=== PATIENT | male | born 1975 | race Caucasian/White ===

== ENCOUNTER 2017-01-17 20:07 | Emergency (ER) | payer OTHER ==
[~2017-01-17] VITALS: Ht 167.6 cm; Wt 81.6 kg
[~2017-01-17 20:07] MED LIST: ACETAMINOPHEN500 M3 ORAL; ALBUTEROL SULF8.5 GM INH; AZITHROMYCIN250 MG ORAL; GUAIFENESIN-CO118 M1 ORAL; LEVOFLOXACIN500 MG ORAL; LORATADINE10 M2 PO; PREDNISONE20 M1 PO; PRILOSEC40 MG ORAL; PROMETHAZI6.25 MG/2 ORAL; PROMETHAZINE-C118 M1 ORAL
[2017-01-17] MEDS ORDERED: BACITRACIN ZIN1 EACH TOPIC (20:55)
[2017-01-17] MEDS ORDERED: IBUPROFEN600 MG ORAL (20:55)
[2017-01-17 21:28] VITALS: BP 122/80
--- NOTE | 2017-01-17 22:12 | Emergency Room Report ---
History of Present Illness General Chief Complaint: Animal Bite Source: Patient Present Illness HPI Patient is a 41-year-old male who presented after increased left-sided leg pain. The patient reports being bitten by a dachshund. He reports having pain to his left leg only. Patient denies past medical history other than pneumonia. Allergies: Coded Allergies: No Known Allergies (Verified Allergy, Unknown, 02/28/10) Patient History Reviewed Nursing Documentation: PMH: Agreed, PSxH: Agreed Nursing Documentation-PMH Past Medical History: No Stated History Hx Cardiac Problems: No Hx Hypertension: No Hx Pacemaker: No Hx Asthma: No Hx COPD: No Hx Diabetes: No Hx Cancer: No Hx Gastrointestinal Problems: Yes - GERD Hx Dialysis: No Hx Neurological Problems: No Hx Cerebrovascular Accident: No Hx Seizures: No Hx Headaches: Yes Review of Systems All Other Systems: negative except mentioned in HPI Physical Exam Vital Signs Date Time Temp Pulse Resp B/P (MAP) Pulse Ox O2 Delivery O2 Flow Rate FiO2 01/17/17 20:11 97.9 71 16 122/80 98 Room Air General Appearance: well appearing, no apparent distress, alert, GCS 15, non- toxic Head: normocephalic, atraumatic ENT: hearing grossly normal, normal voice Neck: full range of motion, supple Respiratory: no respiratory distress, speaking full sentences Gastrointestinal: normal inspection, soft Musculoskeletal: back normal, no calf tenderness Neurologic: normal inspection, alert, oriented x3, responsive, normal gait Psychiatric: mood/affect normal Skin: no rash, other - two small areas of erythema without break in skin Medical Decision Making Diagnostic Impression: Primary Impression: Animal bite of left lower leg ER Course Patient presented for animal bite. Differential diagnoses included foreign body, nerve injury, arterial injury among others. Patient's benign exam and does not appear to require any further imaging or laboratory testing at this time. The patient's tetanus vaccine is up to date. Patient does not appear to require any acute medical treatment. The skin appears to be intact. There are noted to be to areas consistent with teeth jones Last Vital Signs Date Time Temp Pulse Resp B/P (MAP) Pulse Ox O2 Delivery O2 Flow Rate FiO2 01/17/17 21:28 97.9 16 122/80 98 Room Air 01/17/17 20:11 71 Status: improved Disposition: HOME, SELF-CARE Condition: Stable Scripts Bacitracin Zinc* (BACITRACIN ZINC*) 1 Each Packet 1 APPLIC TOPIC THREE TIMES A DAY, #30 PACKET Prov: Rinku Hunter 01/17/17 Ibuprofen* (MOTRIN*) 600 Mg Tablet 600 MG ORAL Q8H Y for For Pain, #30 TAB 0 Refills Prov: Rinku Hunter 01/17/17 Referrals: [facility],REFERRING (PCP) Patient Instructions: Animal Bite Rinku Hunter Jan 17, 2017 22:12
== END 2017-01-17 21:30 | disposition home or self-care (01) ==
LOC: EMR 21:00
DX: S89.82XA Other specified injuries of left lower leg, initial encounter (principal); W54.0XXA Bitten by dog, initial encounter; Y92.89 Other specified places as the place of occurrence of the external cause
CPT/HCPCS: 99283

== ENCOUNTER 2017-06-09 20:34 | Emergency (ER) | payer MEDICAID, OTHER ==
[~2017-06-09] VITALS: Ht 167.6 cm; Wt 79.4 kg
[~2017-06-09 20:34] MED LIST changes: +BACITRACIN ZIN1 EACH TOPIC; +IBUPROFEN600 MG ORAL
[2017-06-09 20:44] VITALS: BP 125/72
[2017-06-09] MEDS ORDERED: AUGMENTIN 875-1 EAC1 ORAL (20:56)
--- NOTE | 2017-06-09 20:59 | Emergency Room Report ---
History of Present Illness General Chief Complaint: Animal Bite Source: Patient Present Illness HPI 42-year-old male, no significant past medical history, presenting with Doppler to his face. Patient's own dog bit him in his right lower face, his vaccinations and rabies are up-to-date. Patient's tetanus is not up-to-date. This occurred today. No redness no purulent drainage. No other injuries Allergies: Coded Allergies: No Known Allergies (Verified Allergy, Unknown, 02/28/10) Patient History Past Medical History: see triage record Past Surgical History: none Pertinent Family History: none Reviewed Nursing Documentation: PMH: Agreed, PSxH: Agreed Nursing Documentation-PMH Hx Cardiac Problems: No Hx Hypertension: No Hx Pacemaker: No Hx Asthma: No Hx COPD: No Hx Diabetes: No Hx Cancer: No Hx Gastrointestinal Problems: Yes - GERD Hx Dialysis: No Hx Neurological Problems: No Hx Cerebrovascular Accident: No Hx Seizures: No Hx Headaches: Yes Review of Systems All Other Systems: negative except mentioned in HPI Physical Exam Vital Signs Date Time Temp Pulse Resp B/P (MAP) Pulse Ox O2 Delivery O2 Flow Rate FiO2 06/09/17 20:37 97.6 65 12 125/72 98 Room Air 97.5 Sp02 EP Interpretation: reviewed, normal General Appearance: normal inspection, well appearing, no apparent distress, alert, GCS 15, non-toxic Head: normocephalic, atraumatic Eyes: bilateral eye normal inspection, bilateral eye PERRL, bilateral eye EOMI ENT: normal ENT inspection, normal pharynx, normal voice, moist mucus membranes Neck: normal inspection, full range of motion, supple Respiratory: normal inspection, lungs clear, normal breath sounds, no respiratory distress, no retraction, no wheezing, speaking full sentences, chest symmetrical Cardiovascular #1: normal inspection, regular rate, rhythm, normal capillary refill Cardiovascular #2: 2+ radial (R), 2+ radial (L) Gastrointestinal: normal inspection, non tender, soft, non-distended, no guarding Musculoskeletal: normal inspection, back normal, normal range of motion, non- tender Neurologic: normal inspection, alert, oriented x3, responsive, motor strength/ tone normal, sensory intact, normal gait, speech normal Psychiatric: normal inspection, judgement/insight normal, memory normal Skin: other - Above right upper lip with 1 cm linear non-gaping laceration/ bite. No bleeding. Medical Decision Making Diagnostic Impression: Primary Impression: Dog bite of face ER Course 42-year-old male with dog bite to face Differential diagnosis Dog bite to face, does not need to be repaired at this time, non-gaping ER course: Wound irrigated, bacitracin with sterile dressing applied. Tdap given. Disposition: Patient will be discharged home with Augmentin. Strict return precautions discussed with patient such as fever, chills, increasing bleeding to site, purulent drainage, rapid swelling or redness to area. Patient verbalizes understanding. Patient instructed to return to ED or their primary care doctor in 5-6 days for wound recheck. Patient agrees with plan. Please note that this Emergency Department Report was dictated using [employer]aweekcomputer systems technician technology software, occasionally this can lead to erroneous entry secondary to interpretation by the dictation equipment Last Vital Signs Date Time Temp Pulse Resp B/P (MAP) Pulse Ox O2 Delivery O2 Flow Rate FiO2 06/09/17 20:44 97.5 65 12 125/72 98 Room Air 97.5 Disposition: HOME, SELF-CARE Condition: Improved Scripts Amoxicillin/Potassium Clav 875-125* (AUGMENTIN 875-125 TABLET*) 1 Each Tablet 1 TAB ORAL TWICE A DAY for 7 Days, #14 TAB 0 Refills Prov: Georgie Stewart M.D. 06/09/17 Patient Instructions: Animal Bite Additional Instructions: PLEASE SEE YOUR DOCTOR IN 5-6 DAYS FOR WOUND RECHECK Georgie Stewart M.D. Jun 09, 2017 20:59
[2017-06-09] MEDS ORDERED: Bacitracin Oint UD TOPIC ONE (21:00)
[2017-06-09] MEDS ORDERED: Tetanus/Diptheria/Pertussis Vaccine 0.5ml Syr IM ONE (21:00)
[2017-06-09 21:13] VITALS: BP 125/72
== END 2017-06-09 21:30 | disposition home or self-care (01) ==
LOC: EMR 21:15
DX: S01.511A Laceration without foreign body of lip, initial encounter (principal); W54.0XXA Bitten by dog, initial encounter; Y92.9 Unspecified place or not applicable; Z23 Encounter for immunization; K21.9 Gastro-esophageal reflux disease without esophagitis
CPT/HCPCS: 90471; 90715; 99283

== ENCOUNTER 2019-02-17 10:57 | Emergency (ER) | payer MEDICAID, OTHER ==
[~2019-02-17] VITALS: Ht 172.7 cm; Wt 77.1 kg
[~2019-02-17 10:57] MED LIST changes: +AUGMENTIN 875-1 EAC1 ORAL
[2019-02-17 11:39] VITALS: BP 135/83
[2019-02-17] MEDS ORDERED: CEPHALEXIN500 M1 ORAL (11:40)
[2019-02-17] MEDS ORDERED: NORCO 5-325 TA1 EACH ORAL (11:40)
[2019-02-17] MEDS ORDERED: MUPIROCIN22 GM TOPIC (11:40)
[2019-02-17] MEDS ORDERED: IBUPROFEN600 MG ORAL (11:40)
--- NOTE | 2019-02-17 11:41 | NUR ---
ED Nurse Note:ptTristin villa infected left second toe, seen by ER MD given pain meds
--- NOTE | 2019-02-17 11:50 | NUR ---
ER DISCHARGE NOTE: Patient is cleared to be discharged per ERMD, pt is aox4, on room air, with stable vital signs. pt was given dc and prescription instructions, pt was able to verbalize understanding, pt is able to ambulate with steady gait. pt took all belongings.
--- NOTE | 2019-02-17 12:58 | Emergency Room Report ---
History of Present Illness General Chief Complaint: Skin Rash/Abscess Source: Patient Present Illness HPI Patient presents to the emergency department today complaining of left second toe ingrown toenail. Patient states that he is never had episodes this before but the pain has been there for the last few days it has become increasingly swollen. He has been using hydrogen peroxide on it. Denies any other injuries. No other complaints are noted. Denies any trauma. Patient has not seen a emergency doctor. No other modifying factors. No other associated signs and symptoms. No other complaints were noted. Allergies: Coded Allergies: No Known Allergies (Verified Allergy, Unknown, 02/28/10) Patient History Past Medical History: none Past Surgical History: none Pertinent Family History: none Social History: Denies: smoking, alcohol use, drug use Reviewed Nursing Documentation: PMH: Agreed; PSxH: Agreed Nursing Documentation-PMH Past Medical History: No Stated History Hx Cardiac Problems: No Hx Hypertension: No Hx Pacemaker: No Hx Asthma: No Hx COPD: No Hx Diabetes: No Hx Cancer: No Hx Gastrointestinal Problems: Yes - GERD Hx Dialysis: No Hx Neurological Problems: No Hx Cerebrovascular Accident: No Hx Seizures: No Hx Headaches: Yes Review of Systems All Other Systems: negative except mentioned in HPI Physical Exam Vital Signs Date Time Temp Pulse Resp B/P (MAP) Pulse Ox O2 Delivery O2 Flow Rate FiO2 02/17/19 11:28 98.1 68 16 135/83 (100) 97 Room Air Sp02 EP Interpretation: reviewed, normal General Appearance: normal inspection, well appearing, no apparent distress, alert Head: atraumatic Eyes: bilateral eye normal inspection ENT: hearing grossly normal, normal voice Respiratory: no respiratory distress Cardiovascular #1: no edema Genitourinary: no CVA tenderness Musculoskeletal: back normal, normal range of motion, swelling, tender - Left second toe. No evidence of paronychia. Erythematous bruised. Neurologic: normal inspection, alert, responsive, speech normal Psychiatric: normal inspection, judgement/insight normal, mood/affect normal Skin: other - Erythema left second toe Medical Decision Making Diagnostic Impression: Primary Impression: Ingrown toenail of left foot ER Course Patient presents emergency department today complaint left foot pain. The pain is worse in the left second toenail. Differential considerations include abscess, cellulitis, paronychia, fracture just to name a few. Patient's exam is consistent with ingrown toenail. However there is no evidence of paronychia. No need for debridement at this time. Will start patient on antibiotics recommend warm soaks and outpatient follow-up with podiatry. Given prescription for pain medications. Patient is advised to follow up with primary doctor in 2-3 days and return the emergency room for any worsening symptoms and as needed. Last Vital Signs Date Time Temp Pulse Resp B/P (MAP) Pulse Ox O2 Delivery O2 Flow Rate FiO2 02/17/19 11:39 98.1 69 16 135/83 97 Room Air Status: improved Disposition: HOME, SELF-CARE Condition: Stable Scripts Mupirocin* (MUPIROCIN*) 22 Gm Oint...g. 1 APPLIC TOPIC THREE TIMES A DAY for 7 Days, GM Prov: Ryan Davies MD 02/17/19 Cephalexin* (KEFLEX*) 500 Mg Tablet 500 MG ORAL EVERY 6 HOURS for 7 Days, CAP Prov: Ryan Davies MD 02/17/19 Ibuprofen* (MOTRIN*) 600 Mg Tablet 600 MG ORAL Q8H PRN for For Pain, #20 TAB 0 Refills Prov: Ryan Davies MD 02/17/19 Hydrocodone Bit/Acetaminophen 5-325* (NORCO 5-325*) 1 Each Tablet 1 TAB ORAL Q6H PRN for For Pain, #10 TAB 0 Refills Prov: Ryan Davies MD 02/17/19 Referrals: NON PHYSICIAN (PCP) Patient Instructions: Ingrown Toenail Ryan Davies MD Feb 17, 2019 12:58
[2019-02-17 13:17] VITALS: BP 135/83
== END 2019-02-17 12:00 | disposition home or self-care (01) ==
LOC: EMR 11:45
DX: L60.0 Ingrowing nail (principal); K21.9 Gastro-esophageal reflux disease without esophagitis
CPT/HCPCS: 99282